=== PATIENT | female | born 1950 | race Caucasian/White ===

== ENCOUNTER → 2016-11-29 | Outpatient (CLI) | payer BC ==
--- NOTE | 2016-11-29 23:13 | WWHP ---
CHIEF COMPLAINT: Patient is here for her routine gynecologic exam and mammogram. HPI: This is a 66-year-old, G2, P2 with an LMP of 2002. She is status post JIGAR/BSO for benign reasons. The patient has been experiencing some occasional bladder leakage and this can happen with running or coughing and also she does have some urge incontinence at times. Urge incontinence can happen when she gets up from her bed to go to the bathroom in the morning. She sometimes does not make it to the bathroom in time. She is status post retropubic urethropexy, which was done at the time of her hysterectomy. She previously saw Dr. Sparks for her gynecologic care. It has been about 1-1/2 years since her last exam. She is otherwise without complaints. PAST MEDICAL HISTORY: Coronary artery disease since 1996 and she did have an MN in 2014. She is status post stent placement in 1996 and 2014. She also has a history of depression and does wear hearing aids for hearing loss. MEDICATIONS: 1. Lisinopril 2.5 mg daily. 2. Effient 10 mg daily. 3. Carvedilol 3.125 mg b.i.d. 4. Atorvastatin 20 mg daily. 5. Fluoxetine 40 mg daily. 6. Lorazepam 0.5 mg b.i.d. p.r.n. 7. Mirtazapine 15 mg 1/2 tablet daily. 8. Magnesium supplement 250 mg b.i.d. 9. Aspirin 81 mg daily. 10. Vitamin D3 supplement 2000 units daily. 11. Vitamin B complex daily. 12. Fluticasone nasal spray as directed. ALLERGIES TO CODEINE. PAST SURGICAL HISTORY: JIAGR/BSO with RPU 2002, cardiac stent placement in 1996 and 2014, colonoscopy 2016. This was her 3rd one. Jaw surgery in 2003. PAST OB HISTORY: 2 vaginal deliveries. 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 She is status post JIGAR/BSO for benign reasons. SOCIAL HISTORY: She denies tobacco, alcohol and drug use. She has been since 1970 and previously worked at [employer] and is now retired. She has 3 grandchildren. FAMILY HISTORY: Maternal aunt had breast cancer. Mother has coronary artery disease and dementia, father had Parkinson's disease. REVIEW OF SYSTEMS: She lost about 20 pounds after starting on a cardiac diet after 2015. RESPIRATORY: She can get slightly short of breath with strenuous exercise. She denies current cardiac problems or GI problems. PHYSICAL EXAM: Blood pressure 113/73. Height 5 feet 7 inches. Weight 127 pounds, temperature 97.7, pulse 71. This is a well-developed, well-nourished white female who is alert and oriented x3, in no acute distress. HEENT is within normal limits. NECK: Supple without mass or thyromegaly. CHEST AND LUNGS: Clear to auscultation. HEART: Regular rate and rhythm. Breasts are without mass or discharge. Axillary is negative for adenopathy. BACK: Negative for CVA tenderness. ABDOMEN: Soft, nontender, without palpable masses. PELVIC: External genitalia reveal mild to moderate atrophy without lesions. Vagina reveals mild atrophy without lesions. There is no evidence of prolapse. The vaginal cuff is well supported. There is no significant cystocele and there is only small amount of urethral mobility with cough and Valsalva. No urinary leakage was demonstrated. Rectovaginal is negative for mass or tenderness and is negative for occult blood. EXTREMITIES: Nontender. IMPRESSION: 1. A 66-year-old menopausal female, status post total abdominal hysterectomy/bilateral salpingo-oophorectomy for benign reasons. 2. Mild urinary incontinence, which is probably a mixed type of incontinence, without any significant physical findings at this time. PLAN: 1. Pap smears have been discontinued. 2. Self-breast examination was discussed. 3. Mammogram will be done today. 4. We have had a long discussion regarding her urinary leakage. I have recommended regular Kegel exercises and instructions on these were given to the patient. If her symptoms are problematic, consider a trial of medications for overactive bladder and possible referral to a [facility] urologist. 5. Osteoporosis prevention was discussed. I have recommended bone density testing, since it has been more than 10 years since her last one, and a slip was given to the patient for this. 6. She will return in 1 year.
--- NOTE | 2016-11-30 11:16 | MM ---
Reason for exam: screening (asymptomatic). Last mammogram was performed 1 year and 4 months ago. History: Patient is postmenopausal. Family history of breast cancer in maternal aunt. Physical Findings: A clinical breast exam by your physician is recommended on an annual basis and results should be correlated with mammographic findings. MG Screening Mammo w CAD Bilateral CC and MLO view(s) were taken. Prior study comparison: August 12, 2015, mammogram, performed at [facility]. July 09, 2014, mammogram, performed at [facility]. The breast tissue is heterogeneously dense. This may lower the sensitivity of mammography. No significant changes when compared with prior studies. ASSESSMENT: Benign, BI-RAD 2 RECOMMENDATION: Routine screening mammogram of both breasts in 1 year.
== END | disposition home or self-care (01) ==
LOC: WWCWWP 09:46
PROVIDERS: ATTEND Obstetrics & Gynecology
DX: Z12.31 Encounter for screening mammogram for malignant neoplasm of breast (principal)

== ENCOUNTER → 2017-03-08 | Outpatient (CLI) | payer MEDICARE ==
[2017-03-08 09:45] LABS: Basophils % (A) 1 %; CH 29.4; CHCM 32.8; Cholesterol 167 mg/dL (<200); Eosinophils # (A) 0.1 k/uL (0-0.7); Eosinophils % (A) 1 %; Glucose 94 mg/dL (74-99); HCT 46.1 % (34.0-46.0); HDL Cholesterol 61 mg/dL (40-60); HDW 2.23; HGB 15.2 gm/dL (11.4-16.0); Luc # (Auto) 0.08; Luc % (Auto) 2; Lymphocytes # (A) 1.3 k/uL (1.0-4.8); Lymphocytes % (A) 27 %; MCH 29.7 pg (25.0-35.0); MCHC 32.9 g/dL (31.0-37.0); MCV 90.2 fL (80.0-100.0); Mean Platelet Volume 7.7; Monocytes # (A) 0.2 k/uL (0-1.0); Monocytes % (A) 5 %; Neutrophils # (A) 3.1 k/uL (1.3-7.7); Neutrophils % (A) 65 %; RBC 5.11 m/uL (3.80-5.40); RDW 12.9 % (11.5-15.5); Triglycerides 74 mg/dL (<150); WBC 4.8 k/uL (3.8-10.6); WBC (Perox) 4.93
== END ==
LOC: LABWHC1 08:52
PROVIDERS: ATTEND Internal Medicine
DX: E78.5 Hyperlipidemia, unspecified (principal); I10 Essential (primary) hypertension; Z13.1 Encounter for screening for diabetes mellitus
CPT/HCPCS: 36415; 80061; 82947; 85025

== ENCOUNTER → 2017-05-02 | Outpatient (CLI) | payer MEDICARE ==
--- NOTE | 2017-05-02 15:42 | BD ---
EXAMINATION TYPE: MG DEXA axial skeleton. DATE OF EXAM: 05/02/2017 COMPARISON: NONE CLINICAL HISTORY: 67-year-old female postmenopausal screening Height: 66 IN Weight: 124 LBS FRAX RISK QUESTIONS: Alcohol (3 or more units per day): NO Family History (Parent hip fracture): NO Glucocorticoids (More than 3mos): NO (Ex: prednisone, prednisolone, methylprednisolone, dexamethasone, and hydrocortisone). History of Fracture in Adulthood: NO Secondary Osteoporosis: 1. Type 1 Diabetes: NO 2. Hyperthyroidism: NO 3. Menopause before 45: AGE 52 4. Malnutrition: NO 5. Chronic liver disease: NO Rheumatoid Arthritis: NO Current Tobacco Use: NO RISK FACTORS HISTORY OF: Active: YES Postmenopausal woman: AGE 52 Take estrogen and/or progesterone medications: NOT NOW How long: AGE 50 - 59 MEDICATIONS: Additional Medications: VIT D, MAGNESIUM, B COMPLEX, FLUTICASONE, FLUOXETINE, ASPIRIN, LISINOPRIL, EF FIENT, CARVEDILOL, ATORVASTATIN, NITROSTAT, LORAZEPAM, EXAM MEASUREMENTS: Bone mineral densitometry was performed using the 500px System. Bone mineral density as measured about the Lumbar spine is: ----- L1-L4(G/cm2): 1.412 T Score Values are as follows: ----- L2: 1.6 ----- L3: 3.8 ----- L4: 2.2 ----- L1-L4: 1.9 Bone mineral density BASELINE Bone mineral density about the R hip (g/cm2): 0.923 Bone mineral density about the L hip (g/cm2): 0.929 T Score values are as follows: -----R Neck: -0.8 -----L Neck: -0.8 -----R Total: -0.8 -----L Total: -1.0 Bone mineral density BASELINE IMPRESSION: Normal (Values between +1 and -1 indicate normal bone mass). However, measurements border on osteopen ia at the left hip. Consider repeating this study in 5 years or sooner if there is some new clinical indication. NOTE: T-SCORE=SD OF THE YOUNG ADULT MEAN.
== END | disposition home or self-care (01) ==
LOC: RADBDWWP 08:27
PROVIDERS: ATTEND Obstetrics & Gynecology
DX: Z78.0 Asymptomatic menopausal state (principal)
CPT/HCPCS: 77080

== ENCOUNTER → 2017-11-10 | Outpatient (CLI) | payer MEDICARE ==
[2017-11-10 09:10] LABS: Anion Gap 9 mmol/L; Blood Urea Nitrogen 19 mg/dL (7-17); Calcium 9.8 mg/dL (8.4-10.2); Carbon Dioxide 29 mmol/L (22-30); Chloride 103 mmol/L (98-107); Cholesterol 161 mg/dL (<200); Glucose 93 mg/dL (74-99); HDL Cholesterol 59 mg/dL (40-60); LDL Cholesterol,Calculated 88 mg/dL (0-99); Potassium 4.9 mmol/L (3.5-5.1); Sodium 141 mmol/L (137-145); Triglycerides 69 mg/dL (<150)
== END | disposition home or self-care (01) ==
LOC: LABWHC1 08:31
PROVIDERS: ATTEND Internal Medicine Interventional Cardiology
DX: E78.2 Mixed hyperlipidemia (principal)
CPT/HCPCS: 36415; 80048; 80061

== ENCOUNTER → 2018-01-08 | Outpatient (CLI) | payer MEDICARE ==
[2018-01-08 13:25] VITALS: PULSE 77; TEMP 96.4; BMI 20.7
--- NOTE | 2018-01-08 14:22 | P.HPOB ---
History of Present Illness H&P Date: 01/08/18 Chief Complaint: The patient is here for her routine gynecologic exam and mammogram. This is a 67-year-old with LMP of 2002. The patient is status post [facility] BSO for benign reasons. She is without gynecologic complaints at this time. Review of Systems The patient has gained 5 pounds over the last year. She denies respiratory, cardiac or G.I. problems. She denies maltreatment. She slipped on the ice wants this year. She had some bruises with no other injury. : she does have to get up at night to urinate. She also has times when she has to get to the bathroom right away during the day or she can leak. Past Medical History Past Medical History: Coronary Artery Disease (CAD), Hyperlipidemia ([place] in 2014. ), Hypertension, Myocardial Infarction ([place]) Additional Past Medical History / Comment(s): 1996 2 stents placed further down LAD; Retina Laser surgery 2 weeks ago, at [facility] outpatient; 2001 complete hysterectomy; anxiety. Hearing loss requiring hearing aid. Last Myocardial Infarction Date:: unk History of Any Multi-Drug Resistant Organisms: None Reported Past Surgical History: Heart Catheterization With Stent Additional Past Surgical History / Comment(s): 1996 2 stents placed farther down LAD Date of Last Stent Placement:: 1996 Past Psychological History: Anxiety, Depression Smoking Status: Never smoker Past Alcohol Use History: None Reported Past Drug Use History: None Reported - Past Family History Mother Family Medical History: Hypertension Additional Family Medical History / Comment(s): double bypass Father Family Medical History: COPD, Hearing Disorder / Deafness, Hypertension Additional Family Medical History / Comment(s): parkinsons; heart valve replacement Medications and Allergies Home Medications Medication Instructions Recorded Confirmed Type Aspirin 81 mg PO DAILY 09/12/15 01/08/18 History Cholecalciferol [Vitamin D3] 2,000 unit PO DAILY@1200 09/12/15 01/08/18 History Ezetimibe/Simvastatin [Vytorin 1 tab PO HS 09/12/15 01/08/18 History 10-40 mg Tablet] Fluticasone Propionate [Flonase 1 spray EA NOSTRIL HS 09/12/15 01/08/18 History Allergy Relief] LORazepam [Ativan] 0.5 mg PO TID PRN 09/12/15 01/08/18 History Loratadine [Claritin] 10 mg PO HS 09/12/15 01/08/18 History Magnesium Oxide [Mag-Ox] 250 mg PO BID 09/12/15 01/08/18 History Venlafaxine HCl [Effexor XR] 150 mg PO DAILY 09/12/15 01/08/18 History Vitamin B Complex 1 each PO DAILY 09/12/15 01/08/18 History Carvedilol [Coreg] 3.125 mg PO BID-W/MEALS #180 tab 09/16/15 01/08/18 Rx Lisinopril [Zestril] 2.5 mg PO DAILY #90 tab 09/16/15 01/08/18 Rx Nitroglycerin Sl Tabs [Nitrostat] 0.4 mg SUBLINGUAL Q5M PRN #25 tab 09/16/15 Rx Prasugrel [Effient] 10 mg PO DAILY #90 tab 09/16/15 01/08/18 Rx Ciprofloxacin HCl [Cipro] 500 mg PO Q12HR #10 tablet 09/19/15 01/08/18 Rx Cholecalciferol (Vitamin D3) 2,000 unit PO DAILY 01/08/18 01/08/18 History [Vitamin D3] Allergies Allergy/AdvReac Type Severity Reaction Status Date / Time codeine AdvReac Nausea & Verified 01/08/18 12:56 Vomiting Exam - Vital Signs Vital signs: Vital Signs Temp Pulse 01/08/18 12:54 96.4 F L 77 Intake and Output 01/07/18 01/08/18 01/08/18 22:59 06:59 14:59 Other: Weight 59.874 kg Height 5'7", BMI 21. This is a well-developed well-nourished white female who is alert and oriented times 3 in no acute distress. HEENT: Within normal limits. NECK: Supple without mass or thyromegaly. CHEST AND LUNGS: Clear to auscultation. HEART: Regular rate and rhythm. BREASTS: Are without mass or discharge. AXILLARY EXAM: Negative for adenopathy. BACK: Negative for CVA tenderness. ABDOMEN: Soft, nontender, without palpable masses. PELVIC EXAM: External genitalia appears normal with mild to moderate atrophic changes. Vagina appears normal with moderate atrophy. There is no evidence of prolapse. Bimanual examination is negative for mass or tenderness. RECTAL EXAM: Rectovaginal exam is negative for mass or tenderness and is negative for occult blood. EXTREMITIES: Nontender. IMPRESSION: 1. 67-year-old menopausal female status post JIGAR BSO for benign reasons with normal gynecologic exam. PLAN: 1. Pap smears have been discontinued. 2. Self breast examination was discussed. 3. Screening mammogram will be done today. 4. Osteoporosis prevention was discussed. 5. She did receive a flu shot this past fall. 6. She will return one year.
--- NOTE | 2018-01-09 12:24 | MM ---
Reason for exam: screening (asymptomatic). Last mammogram was performed 1 year and 1 month ago. History: Patient is postmenopausal. Family history of breast cancer in maternal aunt. Physical Findings: A clinical breast exam by your physician is recommended on an annual basis and results should be correlated with mammographic findings. MG 3D Screening Mammo W/Cad Bilateral CC and MLO view(s) were taken. Prior study comparison: November 29, 2016, bilateral MG screening mammo w CAD. August 12, 2015, mammogram, performed at [facility]. No suspicious abnormality. No significant changes when compared with prior studies. ASSESSMENT: Negative, BI-RAD 1 RECOMMENDATION: Routine screening mammogram of both breasts in 1 year.
== END | disposition home or self-care (01) ==
LOC: WWCWWP 12:46
PROVIDERS: ATTEND Obstetrics & Gynecology
DX: Z12.31 Encounter for screening mammogram for malignant neoplasm of breast (principal)
CPT/HCPCS: 77063; 77067

== ENCOUNTER → 2018-05-30 | Outpatient (CLI) | payer MEDICARE ==
[2018-05-30 11:01] LABS: Albumin 4.3 g/dL (3.5-5.0); Calcium 9.5 mg/dL (8.4-10.2); Total Bilirubin 0.5 mg/dL (0.2-1.3); Total Protein 6.7 g/dL (6.3-8.2)
== END | disposition home or self-care (01) ==
LOC: LABWHC1 09:48
PROVIDERS: ATTEND Internal Medicine Interventional Cardiology
DX: E78.2 Mixed hyperlipidemia (principal)
CPT/HCPCS: 36415; 80053; 80061

== ENCOUNTER → 2018-12-10 | Outpatient (CLI) | payer MEDICARE ==
[2018-12-10 17:28] LABS: Albumin 4.1 g/dL (3.80-4.90); Albumin/Globulin Ratio 2.16 (1.60-3.17); Anion Gap 8.8 mmol/L (4.00-12.00); Calcium 9.3 mg/dL (8.7-10.3); Carbon Dioxide 27.2 mmol/L (21.6-31.8); Globulin 1.9 g/dL (1.6-3.3); LDL Cholesterol,Calculated 107.6 mg/dL (0.0-131.0); Potassium 4.7 mmol/L (3.5-5.5); Total Bilirubin 0.4 mg/dL (0.2-1.2); VLDL Calculation 19.4 mg/dL (5.00-40.00)
== END | disposition home or self-care (01) ==
LOC: LABWHC1 07:46
PROVIDERS: ATTEND Internal Medicine Interventional Cardiology
DX: E78.2 Mixed hyperlipidemia (principal)
CPT/HCPCS: 36415; 80053; 80061

== ENCOUNTER → 2019-02-12 | Outpatient (CLI) | payer MEDICARE ==
[2019-02-12 08:09] VITALS: BP 106/61; PULSE 63; RESP 18; TEMP 97.5; BMI 21.4
--- NOTE | 2019-02-12 09:03 | P.HPOB ---
History of Present Illness H&P Date: 02/12/19 Chief Complaint: The patient is here for her routine gynecologic exam and ma mmogram. This is a 68-year-old with an LMP of 2002. The patient states she has had fairly frequent urinary tract infections over the past year. She had one in May, June, and August 2018. She also had one earlier this month. She has been treated through her urgent care clinic typically with Macrobid. She states her symptoms of pressure, urinary urgency and low back pain usually resolves with Macrobid. She has not been sexually active and is fearful that it will be very uncomfortable if she resumes sexual activity. She is otherwise without complaints. She is status post [facility] BSO for benign reasons. Review of Systems She is getting about 4 pounds over the past year.. She denies respiratory, cardiac and G.I. problems except for occasional constipation. She denies maltreatment or problems with falling. : she often will wear pad for small leakage. She typically urinates once at night.. Past Medical History Past Medical History: Coronary Artery Disease (CAD), Cancer, Hyperlipidemia, Hypertension, Myocardial Infarction ([place]) Additional Past Medical History / Comment(s): 1996 2 stents placed further down LAD; Retina Laser surgery. Hearing loss requiring hearing aid. Basal cell skin cancer. 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 Benign hysterectomy. Last Myocardial Infarction Date:: unk History of Any Multi-Drug Resistant Organisms: None Reported Past Surgical History: Heart Catheterization With Stent, Hysterectomy Additional Past Surgical History / Comment(s): 1996 2 stents placed farther down LAD. Jaw surgery. JIGAR BSO with RPU 2002. Colonoscopy 2016(,next 10yrs) Date of Last Stent Placement:: 1996 Past Psychological History: Anxiety, Depression Smoking Status: Never smoker Past Alcohol Use History: None Reported Past Drug Use History: None Reported Additional History: She is been since 1970 and is retired. - Past Family History Mother Family Medical History: Coronary Artery Disease (CAD), Dementia, Hypertension Additional Family Medical History / Comment(s): double bypass Father Family Medical History: COPD, Hearing Disorder / Deafness, Hypertension Additional Family Medical History / Comment(s): parkinsons; heart valve replacement Medications and Allergies Home Medications Medication Instructions Recorded Confirmed Type Aspirin 81 mg PO DAILY 09/12/15 02/12/19 History Ezetimibe/Simvastatin [Vytorin 40 tab PO HS 09/12/15 02/12/19 History 10-40 mg Tablet] Fluticasone Propionate [Flonase 1 spray EA NOSTRIL HS 09/12/15 02/12/19 History Allergy Relief] LORazepam [Ativan] 0.5 mg PO TID PRN 09/12/15 02/12/19 History Loratadine [Claritin] 10 mg PO HS 09/12/15 02/12/19 History Magnesium Oxide [Mag-Ox] 250 mg PO BID 09/12/15 02/12/19 History Vitamin B Complex 4,000 each PO DAILY 09/12/15 02/12/19 History Carvedilol [Coreg] 3.125 mg PO BID-W/MEALS #180 tab 09/16/15 02/12/19 Rx Lisinopril [Zestril] 2.5 mg PO DAILY #90 tab 09/16/15 02/12/19 Rx Nitroglycerin Sl Tabs [Nitrostat] 0.4 mg SUBLINGUAL Q5M PRN #25 tab 09/16/15 02/12/19 Rx Cholecalciferol (Vitamin D3) 2,000 unit PO DAILY 01/08/18 02/12/19 History [Vitamin D3] FLUoxetine HCL [PROzac] 40 mg PO DAILY 02/12/19 02/12/19 History Allergies Allergy/AdvReac Type Severity Reaction Status Date / Time codeine AdvReac Nausea & Verified 02/12/19 08:00 Vomiting Exam Vital Signs Temp Pulse Resp BP Pulse Ox 02/12/19 08:06 97.5 F L 63 18 106/61 99 Intake and Output 02/11/19 02/12/19 02/12/19 22:59 06:59 14:59 Other: Weight 62.142 kg Height 5'7", weight 137 pounds, BMI 21.5. This is a well-developed well-nourished white female who is alert and oriented times 3 in no acute distress. HEENT: Within normal limits. NECK: Supple without mass or thyromegaly. CHEST AND LUNGS: Clear to auscultation. HEART: Regular rate and rhythm. BREASTS: Are without mass or discharge. AXILLARY EXAM: Negative for adenopathy. BACK: Negative for CVA tenderness. ABDOMEN: Soft, nontender, without palpable masses. PELVIC EXAM: External genitalia appears normal with mild to moderate atrophy. Vagina appears normal with mild to moderate atrophy. There is no evidence of pr olapse. There is minimal urethral mobility with costs and Valsalva. No urinary leakage was demonstrated. Bimanual examination is negative for mass or tenderness. RECTAL EXAM: Rectovaginal exam is negative for mass or tenderness and is negative for occult blood. EXTREMITIES: Nontender. IMPRESSION: 1. 68-year-old menopausal female status post JIGAR BSO with normal gynecologic exam. 2. Recurrent urinary tract infections; 4 over the last 8 months. 3. Mild to moderate genital atrophy PLAN: 1. Pap smears have been discontinued. 2. Self breast awareness was discussed with the patient. 3. Remaining mammogram will be done today. 4. We have had a long discussion regarding her recurrent urinary tract infections. She was advised to try to empty your bladder as completely as possible when she does void. We talked about doing this by giving herself more time and by relaxing without bearing down. We will also have a trial of Premarin vaginal cream to see if this can help with the vaginal atrophy which in turn may help with her problems with recurrent UTIs. She will use Premarin vaginal cream 1 g intravaginally and a small amount to the urethral opening twice weekly. The electronic prescription will be sent to [facility] pharmacy on . 5. Osteoporosis prevention was discussed. I have stressed the importance of adequate calcium, vitamin D and regular exercise. Recommended amounts of calcium and vitamin D were also discussed. She had a normal bone density test on 05/02/2017. This will be repeated 5 years after her last testing. 6. She did receive flu shot last fall and plans to get one in the upcoming fall. 7.She was advised to return in one year for her annual well woman exam.
--- NOTE | 2019-02-13 11:46 | MM ---
Reason for exam: screening (asymptomatic). Last mammogram was performed 1 year and 1 month ago. History: Patient is postmenopausal and history of other cancer. Family history of breast cancer in maternal aunt. Physical Findings: A clinical breast exam by your physician is recommended on an annual basis and results should be correlated with mammographic findings. MG 3D Screening Mammo W/Cad Bilateral CC and MLO view(s) were taken. Prior study comparison: January 08, 2018, bilateral MG 3d screening mammo w/cad. November 29, 2016, bilateral MG screening mammo w CAD. The breast tissue is extremely dense which could obscure a lesion on mammography. Benign appearing bilateral calcifications. No suspicious abnormality. No significant changes when compared with prior studies. ASSESSMENT: Benign, BI-RAD 2 RECOMMENDATION: Routine screening mammogram of both breasts in 1 year.
== END ==
LOC: WWCWWP 07:45
PROVIDERS: ATTEND Obstetrics & Gynecology
DX: Z12.31 Encounter for screening mammogram for malignant neoplasm of breast (principal)
CPT/HCPCS: 77063; 77067

== ENCOUNTER → 2019-06-30 | Outpatient (CLI) | payer MEDICARE ==
[2019-06-30 16:09] LABS: Chol/HDL Ratio 2.59
== END | disposition home or self-care (01) ==
LOC: LABWHC1 09:20
PROVIDERS: ATTEND Internal Medicine Interventional Cardiology
DX: E78.2 Mixed hyperlipidemia (principal)
CPT/HCPCS: 36415; 80061; 84450; 84460

== ENCOUNTER → 2019-09-12 | Outpatient (CLI) | payer MEDICARE ==
[2019-09-12 16:26] LABS: Chol/HDL Ratio 2.73; LDL Cholesterol,Calculated 83.4 mg/dL (0.0-131.0); VLDL Calculation 11.6 mg/dL (5.00-40.00)
== END | disposition home or self-care (01) ==
LOC: LABWHC1 07:38
PROVIDERS: ATTEND Nurse Practitioner Adult Health
DX: E78.2 Mixed hyperlipidemia (principal)
CPT/HCPCS: 36415; 80061; 84450; 84460

== ENCOUNTER → 2019-11-21 | Outpatient (CLI) | payer MEDICARE ==
[2019-11-21 16:56] LABS: African American GFR (CKD) 67.5 (60.0-200.0); Albumin 4.6 g/dL (3.80-4.90); Albumin/Globulin Ratio 2.71 (1.60-3.17); Anion Gap 6.9 mmol/L (4.00-12.00); Calcium 9.7 mg/dL (8.7-10.3); Carbon Dioxide 27.1 mmol/L (21.6-31.8); Chol/HDL Ratio 2.65; Globulin 1.7 g/dL (1.6-3.3); LDL Cholesterol,Calculated 77.2 mg/dL (0.0-131.0); Non-African American GFR(CKD) 58.2 (60.0-200.0); Potassium 4.8 mmol/L (3.5-5.5); Total Bilirubin 0.6 mg/dL (0.2-1.2); Total Protein 6.3 g/dL (6.2-8.2); VLDL Calculation 13.8 mg/dL (5.00-40.00)
== END ==
LOC: LABWHC1 08:47
PROVIDERS: ATTEND Internal Medicine Interventional Cardiology
DX: E78.2 Mixed hyperlipidemia (principal)
CPT/HCPCS: 36415; 80053; 80061

== ENCOUNTER → 2020-01-05 | Outpatient (CLI) | payer MEDICARE | END | disposition home or self-care (01) | DX: I25.10 Atherosclerotic heart disease of native coronary artery without angina pectoris (principal) | CPT/HCPCS: 36415; 83735 ==

== ENCOUNTER → 2020-07-28 | Outpatient (CLI) | payer MEDICARE ==
[2020-07-28 10:05] LABS: Basophils % (A) 1 %; Eosinophils # (A) 0.1 k/uL (0-0.7); Eosinophils % (A) 1 %; HCT 44.7 % (34.0-46.0); HGB 14.5 gm/dL (11.4-16.0); Lymphocytes # (A) 1.2 k/uL (1.0-4.8); Lymphocytes % (A) 23 %; MCH 30.1 pg (25.0-35.0); MCHC 32.5 g/dL (31.0-37.0); MCV 92.6 fL (80.0-100.0); Mean Platelet Volume 8.4; Monocytes # (A) 0.3 k/uL (0-1.0); Monocytes % (A) 5 %; Neutrophils # (A) 3.7 k/uL (1.3-7.7); Neutrophils % (A) 69 %; Platelet Count 227 k/uL (150-450); RBC 4.82 m/uL (3.80-5.40); RDW 12.7 % (11.5-15.5); WBC 5.4 k/uL (3.8-10.6)
[2020-07-28 18:32] LABS: Albumin 4.3 g/dL (3.80-4.90); Albumin/Globulin Ratio 2.39 (1.60-3.17); Anion Gap 6.5 mmol/L (4.00-12.00); Calcium 9.2 mg/dL (8.7-10.3); Carbon Dioxide 26.5 mmol/L (21.6-31.8); Chol/HDL Ratio 2.47; Globulin 1.8 g/dL (1.6-3.3); Non-African American GFR(CKD) 57.8 (60.0-200.0); Potassium 4.8 mmol/L (3.5-5.5); Total Bilirubin 0.7 mg/dL (0.3-1.2); Total Protein 6.1 g/dL (6.2-8.2)
== END | disposition home or self-care (01) ==
LOC: LABWHC1 08:36
PROVIDERS: ATTEND Internal Medicine Interventional Cardiology
DX: E78.2 Mixed hyperlipidemia (principal)
CPT/HCPCS: 36415; 80053; 80061; 84443; 85025

== ENCOUNTER → 2020-08-03 | Outpatient (CLI) | payer MEDICARE ==
[2020-08-03 09:40] VITALS: BP 109/60; PULSE 57; RESP 18; TEMP 98.2
--- NOTE | 2020-08-03 10:19 | P.HPOB ---
History of Present Illness H&P Date: 08/03/20 Chief Complaint: the patient is here for her routine gynecologic exam. This is a 70-year-old with an LMP of 2002.the patient is here for her routine gynecologic exam. She is without gynecologic complaints. She is status post JIGAR/BSO for benign reasons. The patient was previously having frequent UTIs and was prescribed Premarin vaginal cream to see if this helped. She briefly used it for a short period of time but discontinued. She states she has not had urinary tract infections since last year. Review of Systems She has lost about 5 pounds over the past year. She denies respiratory, cardiac and G.I. problems. She denies maltreatment or problems with falling. : occasional small leak which requires her to wear a pad. This is not a very big problem. Past Medical History Past Medical History: Coronary Artery Disease (CAD), Cancer, Hyperlipidemia, Hypertension, Myocardial Infarction ([place]) Additional Past Medical History / Comment(s): 1996 2 stents placed further down LAD; Retina Laser surgery. Hearing loss requiring hearing aid. Basal cell skin cancer. 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 Benign hysterectomy. Last Myocardial Infarction Date:: unk History of Any Multi-Drug Resistant Organisms: None Reported Past Surgical History: Heart Catheterization With Stent, Hysterectomy Additional Past Surgical History / Comment(s): 1996 2 stents placed farther down LAD. Jaw surgery. JIGAR BSO with RPU 2002. Colonoscopy 2016(,next 10yrs) Date of Last Stent Placement:: 1996 Past Psychological History: Anxiety, Depression Smoking Status: Never smoker Past Alcohol Use History: None Reported Past Drug Use History: None Reported Additional History: She has been since 1970 and is retired. She is no longer sexually active. - Past Family History Mother Family Medical History: Coronary Artery Disease (CAD), Dementia, Hypertension Additional Family Medical History / Comment(s): double bypass Father Family Medical History: COPD, Hearing Disorder / Deafness, Hypertension Additional Family Medical History / Comment(s): parkinsons; heart valve replacement Medications and Allergies Home Medications Medication Instructions Recorded Confirmed Type Aspirin 81 mg PO DAILY 09/12/15 08/03/20 History Ezetimibe/Simvastatin [Vytorin 40 tab PO HS 09/12/15 08/03/20 History 10-40 mg Tablet] Fluticasone Propionate [Flonase 1 spray EA NOSTRIL HS 09/12/15 08/03/20 History Allergy Relief] LORazepam [Ativan] 0.5 mg PO TID PRN 09/12/15 08/03/20 History Loratadine [Claritin] 10 mg PO HS 09/12/15 08/03/20 History Magnesium Oxide [Mag-Ox] 250 mg PO BID 09/12/15 08/03/20 History Vitamin B Complex 4,000 each PO DAILY 09/12/15 08/03/20 History Nitroglycerin Sl Tabs [Nitrostat] 0.4 mg SUBLINGUAL Q5M PRN #25 tab 09/16/15 08/03/20 Rx carvediloL [Coreg] 3.125 mg PO BID-W/MEALS #180 tab 09/16/15 08/03/20 Rx lisinopriL [Zestril] 2.5 mg PO DAILY #90 tab 09/16/15 08/03/20 Rx Cholecalciferol (Vitamin D3) 2,000 unit PO DAILY 01/08/18 08/03/20 History [Vitamin D3] FLUoxetine HCL [PROzac] 80 mg PO DAILY 02/12/19 08/03/20 History Allergies Allergy/AdvReac Type Severity Reaction Status Date / Time codeine AdvReac Nausea & Verified 08/03/20 09:33 Vomiting Exam Vital Signs Temp Pulse Resp BP Pulse Ox 08/03/20 09:33 98.2 F 57 L 18 109/60 98 Intake and Output 08/02/20 08/03/20 08/03/20 22:59 06:59 14:59 Other: Weight 59.874 kg height 5 feet 7 inches, weight 132 pounds, BMI 20.7. This is a well-developed well-nourished White female who is alert and oriented times 3 in no acute distress. HEENT: Within normal limits. NECK: Supple without mass or thyromegaly. CHEST AND LUNGS: Clear to auscultation. HEART: Regular rate and rhythm. BREASTS: Are without mass or discharge. AXILLARY EXAM: Negative for adenopathy. BACK: Negative for CVA tenderness. ABDOMEN: Soft, nontender, without palpable masses. PELVIC EXAM: External genitalia appears normal with mild to moderate atrophy. Vagina appears normal with mild to moderate atrophy. There is no evidence of prolapse. Bimanual examination is negative for mass or tenderness. RECTAL EXAM: Rectovaginal exam is negative for mass or tenderness and is negative for occult blood. EXTREMITIES: Nontender. IMPRESSION: 1. 70-year-old menopausal female status post JIGAR/BSO for benign reasons with normal gynecologic exam. 2. Improvement of recurrent UTIs. PLAN: 1. Pap smears have been discontinued. 2. Self breast awareness was discussed with the patient. 3. screening mammogram will be done today. 4. osteoporosis prevention was discussed. We will plan on repeating bone density testing in 2021 since she had a normal one in 2017. 5. she did get a flu shot recently. 6. She will use a small amount of Premarin cream near the urethral opening twice weekly. She does have a tube for this. She will call if she needs refills. 7. The patient was advised to return in 1-2 years for her well woman examination.
--- NOTE | 2020-08-04 11:40 | MM ---
Reason for exam: screening (asymptomatic). Last mammogram was performed 1 year and 6 months ago. History: Patient is postmenopausal and history of other cancer. Family history of breast cancer in maternal aunt. Physical Findings: A clinical breast exam by your physician is recommended on an annual basis and results should be correlated with mammographic findings. MG 3D Screening Mammo W/Cad Bilateral CC and MLO view(s) were taken. Prior study comparison: February 12, 2019, bilateral MG 3d screening mammo w/cad. January 08, 2018, bilateral MG 3d screening mammo w/cad. The breast tissue is extremely dense which could obscure a lesion on mammography. Stable benign calcifications. There is no discrete abnormality. No significant changes when compared with prior studies. ASSESSMENT: Benign, BI-RAD 2 RECOMMENDATION: Routine screening mammogram of both breasts in 1 year.
== END | disposition home or self-care (01) ==
LOC: WWCWWP 09:17
PROVIDERS: ATTEND Obstetrics & Gynecology
DX: Z12.31 Encounter for screening mammogram for malignant neoplasm of breast (principal)
CPT/HCPCS: 77063; 77067

== ENCOUNTER → 2021-01-12 | Outpatient (CLI) | payer MEDICARE ==
[2021-01-12 17:09] LABS: Albumin 4.6 g/dL (3.80-4.90); Albumin/Globulin Ratio 2.42 (1.60-3.17); Calcium 9.2 mg/dL (8.7-10.3); Chol/HDL Ratio 2.84; Globulin 1.9 g/dL (1.6-3.3); LDL Cholesterol,Calculated 81.2 mg/dL (0.0-131.0); Non-African American GFR(CKD) 57.8 (60.0-200.0); Potassium 4.5 mmol/L (3.5-5.5); Total Bilirubin 0.7 mg/dL (0.3-1.2); Total Protein 6.5 g/dL (6.2-8.2); VLDL Calculation 21.8 mg/dL (5.00-40.00)
== END | disposition home or self-care (01) ==
LOC: LABWHC1 08:35
PROVIDERS: ATTEND Nurse Practitioner Adult Health
DX: I25.5 Ischemic cardiomyopathy (principal); E78.2 Mixed hyperlipidemia
CPT/HCPCS: 36415; 80053; 80061

== ENCOUNTER → 2021-04-13 | Outpatient (CLI) | payer MEDICARE ==
[2021-04-13 14:19] LABS: Basophils # (A) 0.03 X 10*3/uL (0.00-0.10); Basophils % (A) 0.6 %; Eosinophils # (A) 0.09 X 10*3/uL (0.04-0.35); Eosinophils % (A) 1.7 %; HCT 44.1 % (37.2-46.3); HGB 14.4 g/dL (12.0-15.0); Lymphocytes # (A) 1.25 X 10*3/uL (0.90-5.00); Lymphocytes % (A) 23.4 %; MCH 29.7 pg (27.0-32.0); MCHC 32.7 g/dL (32.0-37.0); MCV 90.9 fL (80.0-97.0); Mean Platelet Volume 11.7 fL (9.5-12.2); Monocytes # (A) 0.46 X 10*3/uL (0.20-1.00); Monocytes % (A) 8.6 %; Neutrophils % (A) 65.5 %; Platelet Count 269 X 10*3/uL (140-440); RBC 4.85 X 10*6/uL (4.10-5.20); RDW 13.9 % (11.5-14.5); WBC 5.34 X 10*3/uL (4.50-10.00)
== END | disposition home or self-care (01) ==
LOC: LABWHC1 10:50
PROVIDERS: ATTEND Internal Medicine
DX: N18.31 Chronic kidney disease, stage 3a (principal)
CPT/HCPCS: 36415; 84100; 85025

== ENCOUNTER → 2021-07-28 | Outpatient (CLI) | payer MEDICARE ==
[2021-07-28 13:33] LABS: African American GFR (CKD) 72.4 (60.0-200.0); Albumin 4.4 g/dL (3.8-4.9); Albumin/Globulin Ratio 2.23 (1.60-3.17); Anion Gap 10.8 mmol/L (4.00-12.00); BUN/Creat Ratio 17.9 Ratio (12.00-20.00); Blood Urea Nitrogen 16.7 mg/dL (9.0-27.0); Calcium 9.5 mg/dL (8.7-10.3); Carbon Dioxide 25.9 mmol/L (21.6-31.8); Chol/HDL Ratio 2.67 Ratio; HDL Cholesterol 58.7 mg/dL (40.00-60.00); LDL Cholesterol,Calculated 79.2 mg/dL (0.0-131.0); Non-African American GFR(CKD) 62.5 (60.0-200.0); Potassium 4.9 mmol/L (3.5-5.5); Total Bilirubin 0.4 mg/dL (0.30-1.20); Total Protein 6.3 g/dL (6.2-8.2); Triglycerides 95.5 mg/dL (0.00-149.00); VLDL Calculation 19.1 mg/dL (5.00-40.00)
== END | disposition home or self-care (01) ==
LOC: LABWHC1 07:51
PROVIDERS: ATTEND Internal Medicine Interventional Cardiology
DX: E78.2 Mixed hyperlipidemia (principal)
CPT/HCPCS: 36415; 80053; 80061

== ENCOUNTER → 2021-08-16 | Outpatient (CLI) | payer MEDICARE ==
--- NOTE | 2021-08-17 10:43 | MM ---
Reason for exam: screening (asymptomatic). Last mammogram was performed 1 year ago. History: Patient is postmenopausal and history of other cancer. Family history of breast cancer in maternal aunt. Physical Findings: A clinical breast exam by your physician is recommended on an annual basis and results should be correlated with mammographic findings. MG 3D Screening Mammo W/Cad Bilateral CC and MLO view(s) were taken. Prior study comparison: August 03, 2020, bilateral MG 3d screening mammo w/cad. February 12, 2019, bilateral MG 3d screening mammo w/cad. The breast tissue is extremely dense which could obscure a lesion on mammography. Stable benign calcifications. There is no discrete abnormality. No significant changes when compared with prior studies. ASSESSMENT: Benign, BI-RAD 2 RECOMMENDATION: Routine screening mammogram of both breasts in 1 year.
== END | disposition home or self-care (01) ==
LOC: RADMAMWWP 08:35
PROVIDERS: ATTEND Internal Medicine
DX: Z12.31 Encounter for screening mammogram for malignant neoplasm of breast (principal)
CPT/HCPCS: 77063; 77067

== ENCOUNTER → 2022-10-11 | Outpatient (CLI) | payer MEDICARE ==
--- NOTE | 2022-10-11 15:42 | BD ---
EXAMINATION TYPE: Axial Bone Density DATE OF EXAM: 10/11/2022 COMPARISON: NONE CLINICAL HISTORY: 72 years year old Female. ICD-10 CODE: Z78.0 ASYMPTOMATIC MENOPAUSAL Height: 5 FT 5 IN Weight: 137 FRAX RISK QUESTIONS: Alcohol (3 or more units per day): NO Family History (Parent hip fracture): NO Glucocorticoids (More than 3mos): NO (Ex: prednisone, prednisolone, methylprednisolone, dexamethasone, and hydrocortisone). History of Fracture in Adulthood: NO Secondary Osteoporosis: 1. Type 1 Diabetes: NO 2. Hyperthyroidism: NO 3. Menopause before 45: UNKNOWN 4. Malnutrition: NO 5. Chronic liver disease: NO Rheumatoid Arthritis: NO Current Tobacco Use: NO RISK FACTORS HISTORY OF: Family History of Osteoporosis: NO Active: YES Diet low in dairy products/other sources of calcium: NO Postmenopausal woman: YES Take estrogen and/or progesterone medications: NO Lost more than 2 inches in height since high school: NO Frequent falls: NO Poor Health: GOOD Hyperparathyroidism: NO Adrenal Insufficiency: NO MEDICATIONS: Prednisone or other steroids: How Long: Thyroid Medications: Which medication: How Long: Osteoporosis Medications: Which medication: How Long: Additional Medications: MAGNESIUM, VIT D3, BABY ASPIRIN, AMLODIPINE, LORAZEPAM, PROZAC, CARVEDILOL, N ITROSTAT NEEDED, TRAZODONE, ATORVASTATIN, EZETIMIBE Additional History: EXAM MEASUREMENTS: Bone mineral densitometry was performed using the [employer] System. Bone mineral density as measured about the Lumbar spine is: ----- L1-L4(G/cm2): 1.307 T Score Values are as follows: ----- L1: -1.0 ----- L2: 0.3 ----- L3: 1.5 ----- L4: 3.1 ----- L1-L4: 1.1 Bone mineral density has: DECREASED -7.3 % since study of: 2016 Bone mineral density about the R hip (g/cm2): 0.873 Bone mineral density about the L hip (g/cm2): 0.834 T Score values are as follows: -----R Neck: -1.2 -----L Neck: -1.5 -----R Total: -1.2 -----L Total: -1.5 Bone mineral density has: DECREASED -6.6 % since study of: 2017 FRAX%s: The graph provided illustrates a 9.5 % chance for a major osteoporotic fx and a 1.4 % chance for the hips probability for fx in 10 years time. IMPRESSION: Osteopenia (T Score between -2.5 and -1). There is slightly increased risk of fracture and the patient may be considered for treatment. Re-Screen 2-5 years. NOTE: T-SCORE=SD OF THE YOUNG ADULT MEAN.
--- NOTE | 2022-10-11 18:52 | MM ---
Reason for Exam: Screening (asymptomatic). Last mammogram was performed 1 year(s) and 2 month(s) ago. Patient History: Menarche at age 15. First Full-Term at age 23. Left ovary removed at age 51. Right ovary removed at age 51. Hysterectomy at age 51. Postmenopausal. Other cancer. Maternal aunt had breast cancer. Risk Values: Kaylie 5 year model risk: 1.5%. NCI Lifetime model risk: 4.5%. Prior Study Comparison: 02/12/2019 Bilateral Screening Mammogram, [facility]. 08/03/2020 Bilateral Screening Mammogram, [facility]. 08/16/2021 Bilateral Screening Mammogram, [facility]. Tissue Density: The breast tissue is heterogeneously dense. This may lower the sensitivity of mammography. Findings: Analyzed By CAD. Heart appears symmetrical and stable. This benign calcifications present bilaterally. No suspicious groups of microcalcifications, spiculated or lobular masses, architectural distortion or other secondary signs of malignancy are mammographically apparent. Overall Assessment: Benign, BI-RAD 2 Management: Screening Mammogram of both breasts in 1 year. A negative mammogram report should not preclude additional follow up of suspicious palpable abnormalities. Patient should continue monthly self breast exam. A clinical breast exam by your physician is recommended on an annual basis and results should be correlated with mammographic findings. Electronically signed and approved by: Maurilio Gonzales D.O. Radiologis
== END | disposition home or self-care (01) ==
LOC: RADMAMWWP 11:14
PROVIDERS: ATTEND Internal Medicine
DX: Z12.31 Encounter for screening mammogram for malignant neoplasm of breast (principal); Z78.0 Asymptomatic menopausal state; M85.89 Other specified disorders of bone density and structure, multiple sites
CPT/HCPCS: 77063; 77067; 77080

== ENCOUNTER → 2023-08-01 | Outpatient (CLI) | payer MEDICARE ==
[2023-08-01 16:26] LABS: ALT 18 U/L (8-44); AST 21 U/L (13-35); Albumin 4.6 d/dL (3.8-4.9); Albumin/Globulin Ratio 2.19 Ratio (1.60-3.17); Alkaline Phosphatase 59 U/L (41-126); Blood Urea Nitrogen 16.3 mg/dL (9.0-27.0); Calcium 9.7 mg/dL (8.7-10.3); Carbon Dioxide 26.8 mmol/L (21.6-31.8); Chloride 104 mmol/L (96-109); Globulin 2.1 d/dL (1.6-3.3); Glucose 102 mg/dL (70-110); LDL Cholesterol,Calculated 86.9 mg/dL (0.0-131.0); Potassium 5.1 mmol/L (3.5-5.5); Sodium 142 mmol/L (135-145); Total Bilirubin 0.6 mg/dL (0.3-1.2); Total Protein 6.7 d/dL (6.2-8.2); VLDL Calculation 17.62 mg/dL (5.00-40.00)
== END | disposition home or self-care (01) ==
LOC: LABWHC1 09:40
PROVIDERS: ATTEND Internal Medicine Interventional Cardiology
DX: I10 Essential (primary) hypertension (principal); E78.2 Mixed hyperlipidemia
CPT/HCPCS: 36415; 80053; 80061

== ENCOUNTER 2024-02-16 21:00 | Emergency (ER) | payer MEDICARE ==
--- NOTE | 2024-02-16 23:00 | XR ---
EXAM: XR Chest, 2 Views CLINICAL HISTORY: ITS.REASON XR Reason: Chest Pain TECHNIQUE: Frontal and lateral views of the chest. COMPARISON: No previous studies. FINDINGS: Lungs: Unremarkable. No consolidative changes. Pleural space: Unremarkable. No pneumothorax. No pleural effusions. Heart: Unremarkable. No cardiomegaly. Mediastinum: Cardiomediastinal silhouette unremarkable. Bones/joints: Osteopenia. No acute fracture. Soft tissues: Soft tissues are unremarkable. IMPRESSION: No active disease.
--- NOTE | 2024-02-16 23:40 | US ---
EXAM: US Duplex Left Upper Extremity Veins CLINICAL HISTORY: ITS.REASON US Reason: swelling, pain TECHNIQUE: Real-time duplex ultrasound scan of the left upper extremity veins integrating B-mode two-dimensional vascular structure, Doppler spectral analysis, color flow Doppler imaging and compression. COMPARISON: No previous studies. FINDINGS: Deep veins: Unremarkable. No deep venous thrombosis left upper extremity deep venous system. Superficial veins: Unremarkable. No thrombus in the visualized basilic and cephalic veins. Soft tissues: The soft tissues are unremarkable. IMPRESSION: No deep venous thrombosis.
[2024-02-16 23:52] LABS: ALT 18 U/L (4-34); AST 28 U/L (14-36); African American GFR (CKD) 79 (>60 ml/min/1.73 sqM); Albumin 4.2 g/dL (3.5-5.0); Alkaline Phosphatase 62 U/L (38-126); Anion Gap 7 mmol/L; Blood Urea Nitrogen 20 mg/dL (7-17); Calcium 8.8 mg/dL (8.4-10.2); Carbon Dioxide 22 mmol/L (22-30); Chloride 108 mmol/L (98-107); Glucose 90 mg/dL (74-99); Magnesium 2.3 mg/dL (1.6-2.3); Non-African American GFR(CKD) 69 (>60 ml/min/1.73 sqM); Potassium 4.6 mmol/L (3.5-5.1); Sodium 137 mmol/L (137-145); Total Bilirubin 0.5 mg/dL (0.2-1.3); Total Protein 6.8 g/dL (6.3-8.2)
[2024-02-16 23:53] LABS: Basophils % (A) 1 %; Eosinophils # (A) 0.1 k/uL (0-0.7); Eosinophils % (A) 1 %; HCT 43.5 % (34.0-46.0); HGB 14.3 gm/dL (11.4-16.0); Lymphocytes # (A) 1.6 k/uL (1.0-4.8); Lymphocytes % (A) 24 %; MCH 29.5 pg (25.0-35.0); MCHC 32.9 g/dL (31.0-37.0); MCV 89.7 fL (80.0-100.0); Mean Platelet Volume 9.4; Monocytes # (A) 0.5 k/uL (0-1.0); Monocytes % (A) 7 %; Neutrophils # (A) 4.2 k/uL (1.3-7.7); Neutrophils % (A) 65 %; Platelet Count 189 k/uL (150-450); RBC 4.86 m/uL (3.80-5.40); RDW 13.5 % (11.5-15.5); WBC 6.4 k/uL (3.8-10.6)
[2024-02-16 23:54] LABS: INR 0.9 (<1.2)
[2024-02-16 23:55] LABS: Partial Thromboplastin Time 22.8 sec (22.0-30.0); Prothrombin Time 10.1 sec (10.0-12.5)
[2024-02-17] MEDS: ACETAMINOPHEN TAB 325 MG TAB PO STA (00:06)
[2024-02-17 01:13] VITALS: RESP 16
--- NOTE | 2024-02-17 02:04 | ED ---
Extremity Problem HPI - General Chief complaint: Extremity Problem,Nontraumatic Stated complaint: left hand swelling shoulder pain Time Seen by Provider: 02/16/24 22:02 Source: patient Mode of arrival: ambulatory Limitations: no limitations - History of Present Illness Initial comments: 73-year-old female presenting with chief complaint of left upper extremity discomfort. Patient was having some mild swelling and pain to the dorsal surface of her hand today. There has been no injury or trauma. The swelling has come down, she states that the pain is only present when pushing on the dorsal surface of her hand. She also admits to pain in the shoulder blade area on the left side. Seems to be worse when she laughs or coughs. No lower extremity swelling. No chest pain or difficulty breathing. No abdominal pain, nausea, vomiting. No dizziness, headache, vision or hearing changes, numbness, tingling, weakness. No neck pain. - Related Data Home Medications Medication Instructions Recorded Confirmed Aspirin 81 mg PO DAILY 09/12/15 08/03/20 Ezetimibe/Simvastatin [Vytorin 40 tab PO HS 09/12/15 08/03/20 10-40 mg Tablet] Fluticasone Propionate [Flonase 1 spray EA NOSTRIL HS 09/12/15 08/03/20 Allergy Relief] LORazepam [Ativan] 0.5 mg PO TID PRN 09/12/15 08/03/20 Loratadine [Claritin] 10 mg PO HS 09/12/15 08/03/20 Magnesium Oxide [Mag-Ox] 250 mg PO BID 09/12/15 08/03/20 Vitamin B Complex 4,000 each PO DAILY 09/12/15 08/03/20 Cholecalciferol (Vitamin D3) 2,000 unit PO DAILY 01/08/18 08/03/20 [Vitamin D3] FLUoxetine HCL [PROzac] 80 mg PO DAILY 02/12/19 08/03/20 Previous Rx's Medication Instructions Recorded Nitroglycerin Sl Tabs [Nitrostat] 0.4 mg SUBLINGUAL Q5M PRN #25 tab 09/16/15 carvediloL [Coreg] 3.125 mg PO BID-W/MEALS #180 tab 09/16/15 lisinopriL [Zestril] 2.5 mg PO DAILY #90 tab 09/16/15 Allergies Allergy/AdvReac Type Severity Reaction Status Date / Time codeine AdvReac Nausea & Verified 02/16/24 21:07 Vomiting Review of Systems ROS Statement: Those systems with pertinent positive or pertinent negative responses have been documented in the HPI. ROS Other: All systems not noted in ROS Statement are negative. Past Medical History Past Medical History: Coronary Artery Disease (CAD), Cancer, Hyperlipidemia, Hypertension, Myocardial Infarction (OR) Additional Past Medical History / Comment(s): 1996 2 stents placed further down LAD; Retina Laser surgery. Hearing loss requiring hearing aid. Basal cell skin cancer. 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 Benign hysterectomy. Last Myocardial Infarction Date:: unk History of Any Multi-Drug Resistant Organisms: None Reported Past Surgical History: Heart Catheterization With Stent, Hysterectomy Additional Past Surgical History / Comment(s): 1996 2 stents placed farther down LAD. Jaw surgery. JIGAR BSO with RPU 2002. Colonoscopy 2016(3rd,next 10yrs) Date of Last Stent Placement:: 1996 Past Psychological History: Anxiety, Depression Smoking Status: Never smoker Past Alcohol Use History: None Reported Past Drug Use History: None Reported - Past Family History Mother Family Medical History: Coronary Artery Disease (CAD), Dementia, Hypertension Additional Family Medical History / Comment(s): double bypass Father Family Medical History: COPD, Hearing Disorder / Deafness, Hypertension Additional Family Medical History / Comment(s): parkinsons; heart valve replacement General Exam Limitations: no limitations General appearance: alert, in no apparent distress Head exam: Present: atraumatic, normocephalic Eye exam: Present: normal appearance, EOMI Neck exam: Present: normal inspection. Absent: meningismus Respiratory exam: Present: normal lung sounds bilaterally. Absent: respiratory distress, wheezes, rales, rhonchi, stridor Cardiovascular Exam: Present: regular rate, normal rhythm, normal heart sounds. Absent: systolic murmur, diastolic murmur, rubs, gallop, clicks Left Shoulder Exam: Present: normal inspection, full ROM. Absent: tenderness, deformity Hand Wrist exam: Present: normal inspection, full ROM, tenderness (Mild tenderness to the dorsal surface of the hand) Vascular: Absent: vascular compromise Neurological exam: Present: alert, oriented X3 Psychiatric exam: Present: normal affect, normal mood Skin exam: Present: warm, dry Course Vital Signs 04/02/17/24 02/17/24 21:02 00:15 02:19 Temperature 97.8 F 98.0 F Pulse Rate 72 61 70 Respiratory 18 16 16 Rate Blood Pressure 137/67 97/65 94/72 O2 Sat by Pulse 98 99 98 Oximetry Medical Decision Making - Medical Decision Making Was pt. sent in by a medical professional or institution (, [facility], CHEMISTRY TEACHER, urgent care, hospital, or shelter...) When possible be specific @ -No Did you speak to anyone other than the patient for history (EMS, parent, family, police, friend...)? What history was obtained from this source @ -No Did you review nursing and triage notes (agree or disagree)? Why? @ -I reviewed and agree with nursing and triage notes Were old charts reviewed (outside hosp., previous admission, EMS record, old EKG, old radiological studies, urgent care reports/EKG's, shelter records)? Report findings @ -No old charts were reviewed Differential Diagnosis (chest pain, altered mental status, abdominal pain women, abdominal pain men, vaginal bleeding, weakness, fever, dyspnea, syncope, headache, dizziness, GI bleed, back pain, seizure, CVA, palpatations, mental health, musculoskeletal)? @ -Differential Musculoskeletal Muscular strain, contusion, ligament sprain, fracture, arthritis, septic arthritis, bursitis, cellulitis, muscle spasm, nerve compression, DVT, arterial occlusion, herpes zoster, electrolyte abnormality, tumor.... This is not meant to be in all inclusive list EKG interpreted by me (3pts min.). @ -EKG shows sinus rhythm ventricular rate 64. LA interval 122. QRS 85. QT 427. QTc 436. X-rays interpreted by me (1pt min.). @ -X-ray shows no active disease. CT interpreted by me (1pt min.). @ -None done U/S interpreted by me (1pt. min.). @ -Ultrasound shows no DVT What testing was considered but not performed or refused? (CT, X-rays, U/S, labs)? Why? @ -None What meds were considered but not given or refused? Why? @ -None Did you discuss the management of the patient with other professionals (pro fessionals i.e. , [facility] CARLOS, CHEMISTRY TEACHER, lab, RT, psych nurse, social media community manager, carbon printer, teacher, fire information officer, manager rn case)? Give summary @ -No Was smoking cessation discussed for >3mins.? @ -No Was critical care preformed (if so, how long)? @ -No Were there social determinants of health that impacted care today? How? (Homelessness, low income, unemployed, alcoholism, drug addiction, transportation, low edu. Level, literacy, decrease access to med. care, penitentiary, rehab)? @ -No Was there de-escalation of care discussed even if they declined (Discuss DNR or withdrawal of care, Hospice)? DNR status @ -No What co-morbidities impacted this encounter? (DM, HTN, Smoking, COPD, CAD, Cancer, CVA, ARF, Chemo, Hep., AIDS, mental health diagnosis, sleep apnea, morbid obesity)? @ -None Was patient admitted / discharged? Hospital course, mention meds given and route, prescriptions, significant lab abnormalities, going to OR and other pertinent info. @ -73-year-old female present with chief complaint of left upper extremity discomfort. Symptoms started today. No injury or trauma. History and physical exam are conducted. The patient is neurovascularly intact. No chest pain, difficulty breathing, lower extremity swelling. Lab work shows no leukocytosis or anemia. Negative troponin and D-dimer. Chest x-ray shows no active disease and ultrasound is negative for DVT. EKG shows sinus rhythm with no ST deviation. On reevaluation the patient is resting comfortably showing no acute signs of distress. She is eager for discharge home. She will follow-up with her PCP this week. Follow-up with PCP. Report back to ER with any new or worsening symptoms. Discussed return parameters and answered all questions. Patient conveyed verbal understanding and agreed to the plan. I discussed this case in detail with my attending Dr. Kathleen Undiagnosed new problem with uncertain prognosis? @ -No Drug Therapy requiring intensive monitoring for toxicity (Heparin, Nitro, Insulin, Cardizem)? @ -No Were any procedures done? @ -No Diagnosis/symptom? @ -lefft Upper extremity pain Acute, or Chronic, or Acute on Chronic? @ -Acute Uncomplicated (without systemic symptoms) or Complicated (systemic symptoms)? @ -Uncomplicated Side effects of treatment? @ -No Exacerbation, Progression, or Severe Exacerbation? @ -No Poses a threat to life or bodily function? How? (Chest pain, USA, OR, pneumonia, PE, COPD, DKA, ARF, appy, cholecystitis, CVA, Diverticulitis, Homicidal, Suicidal, threat to staff... and all critical care pts) @ -Low likelihood - Lab Data Result diagrams: 02/16/24 23:07 02/16/24 23:07 Lab Results 02/16/24 02/16/24 02/16/24 Range/Units 23:07 23:07 23:07 WBC 6.4 (3.8-10.6) k/uL RBC 4.86 (3.80-5.40) m/uL Hgb 14.3 (11.4-16.0) gm/dL Hct 43.5 (34.0-46.0) % MCV 89.7 (80.0-100.0) fL MCH 29.5 (25.0-35.0) pg MCHC 32.9 (31.0-37.0) g/dL RDW 13.5 (11.5-15.5) % Plt Count 189 (150-450) k/uL MPV 9.4 Neutrophils % 65 % Lymphocytes % 24 % Monocytes % 7 % Eosinophils % 1 % Basophils % 1 % Neutrophils # 4.2 (1.3-7.7) k/uL Lymphocytes # 1.6 (1.0-4.8) k/uL Monocytes # 0.5 (0-1.0) k/uL Eosinophils # 0.1 (0-0.7) k/uL Basophils # 0.0 (0-0.2) k/uL PT 10.1 (10.0-12.5) sec INR 0.9 (<1.2) APTT 22.8 (22.0-30.0) sec D-Dimer (<0.60) mg/L FEU Sodium 137 (137-145) mmol/L Potassium 4.6 (3.5-5.1) mmol/L Chloride 108 H (98-107) mmol/L Carbon Dioxide 22 (22-30) mmol/L Anion Gap 7 mmol/L BUN 20 H (7-17) mg/dL Creatinine 0.86 (0.52-1.04) mg/dL Est GFR (CKD-EPI)AfAm 79 (>60 ml/min/1.73 sqM) Est GFR (CKD-EPI)NonAf 69 (>60 ml/min/1.73 sqM) Glucose 90 (74-99) mg/dL Calcium 8.8 (8.4-10.2) mg/dL Magnesium 2.3 (1.6-2.3) mg/dL Total Bilirubin 0.5 (0.2-1.3) mg/dL AST 28 (14-36) U/L ALT 18 (4-34) U/L Alkaline Phosphatase 62 (38-126) U/L Troponin I (0.000-0.034) ng/mL Total Protein 6.8 (6.3-8.2) g/dL Albumin 4.2 (3.5-5.0) g/dL 02/16/24 02/16/24 Range/Units 23:07 23:07 WBC (3.8-10.6) k/uL RBC (3.80-5.40) m/uL Hgb (11.4-16.0) gm/dL Hct (34.0-46.0) % MCV (80.0-100.0) fL MCH (25.0-35.0) pg MCHC (31.0-37.0) g/dL RDW (11.5-15.5) % Plt Count (150-450) k/uL MPV Neutrophils % % Lymphocytes % % Monocytes % % Eosinophils % % Basophils % % Neutrophils # (1.3-7.7) k/uL Lymphocytes # (1.0-4.8) k/uL Monocytes # (0-1.0) k/uL Eosinophils # (0-0.7) k/uL Basophils # (0-0.2) k/uL PT (10.0-12.5) sec INR (<1.2) APTT (22.0-30.0) sec D-Dimer 0.58 (<0.60) mg/L FEU Sodium (137-145) mmol/L Potassium (3.5-5.1) mmol/L Chloride (98-107) mmol/L Carbon Dioxide (22-30) mmol/L Anion Gap mmol/L BUN (7-17) mg/dL Creatinine (0.52-1.04) mg/dL Est GFR (CKD-EPI)AfAm (>60 ml/min/1.73 sqM) Est GFR (CKD-EPI)NonAf (>60 ml/min/1.73 sqM) Glucose (74-99) mg/dL Calcium (8.4-10.2) mg/dL Magnesium (1.6-2.3) mg/dL Total Bilirubin (0.2-1.3) mg/dL AST (14-36) U/L ALT (4-34) U/L Alkaline Phosphatase (38-126) U/L Troponin I <0.012 (0.000-0.034) ng/mL Total Protein (6.3-8.2) g/dL Albumin (3.5-5.0) g/dL Disposition Clinical Impression: Left upper limb pain Disposition: HOME SELF-CARE Condition: Good Instructions (If sedation given, give patient instructions): Shoulder Pain (ED) Additional Instructions: Follow-up with your PCP. Report back to ER with any new or worsening symptoms. Is patient prescribed a controlled substance at d/c from ED?: No Referrals: Iwona Kaur MD [Primary Care Provider] - 1-2 days Time of Disposition: 02:04
[2024-02-17 02:43] VITALS: BP 94/72; PULSE 70; TEMP 98
== END 2024-02-17 02:22 | disposition home or self-care (01) ==
LOC: EC 21:00
DX: M79.602 Pain in left arm (principal); Z88.5 Allergy status to narcotic agent
CPT/HCPCS: 36415; 71046; 80053; 83735; 84484; 85025; 85379; 85610; 85730; 93005; 99284

== ENCOUNTER → 2024-09-30 | Outpatient (CLI) | payer MEDICARE ==
--- NOTE | 2024-10-06 11:33 | MM ---
Reason for Exam: Screening (asymptomatic). Last mammogram was performed 2 year(s) and 0 month(s) ago. Patient History: Menarche at age 15. First Full-Term at age 23. Left ovary removed at age 51. Right ovary removed at age 51. Hysterectomy at age 51. Postmenopausal. Other cancer. Maternal aunt had breast cancer. Risk Values: Kaylie 5 year model risk: 1.6%. NCI Lifetime model risk: 4.1%. Prior Study Comparison: 08/03/2020 Bilateral Screening Mammogram, [facility]. 08/16/2021 Bilateral Screening Mammogram, [facility]. 10/11/2022 Bilateral MG 3D screening mammo w/cad, [facility]. Tissue Density: The breasts are heterogeneously dense, which may obscure small masses. Findings: Analyzed By CAD. Right breast: There is no suspicious group of microcalcifications or new suspicious mass. Left breast: There is no suspicious group of microcalcifications or new suspicious mass. Benign-appearing calcifications left breast. Overall Assessment: Benign, BI-RAD 2 Management: Screening Mammogram of both breasts in [address] [facility] will attempt to contact patient to return for supplemental views and ultrasound if indicated. Patient should continue monthly self-breast exams. A clinical breast exam by your physician is recommended on an annual basis. This exam should not preclude additional follow-up of suspicious palpable abnormalities. Note on Kaylie scores and lifetime risk: 1. A Kaylie score greater than 3% is considered moderate risk. If this is the case, consider specialist referral to assess eligibility for a risk reducing agent. 2. If overall lifetime risk for the development of breast cancer is 20% or higher, the patient may qualify for future screening with alternating mammogram and breast MRI. [facility], , 10/06/2024 11:29 AM. Electronically signed and approved by: Loyd Kay DO
== END | disposition home or self-care (01) ==
LOC: RADMAMWWP 14:45
PROVIDERS: ATTEND Internal Medicine
DX: Z12.31 Encounter for screening mammogram for malignant neoplasm of breast (principal); Z78.0 Asymptomatic menopausal state; Z80.3 Family history of malignant neoplasm of breast; Z90.722 Acquired absence of ovaries, bilateral; R92.333 Mammographic heterogeneous density, bilateral breasts
CPT/HCPCS: 77063; 77067

== ENCOUNTER → 2025-01-26 | Outpatient (CLI) | payer MEDICARE ==
[2025-01-26 15:16] LABS: ALT 17 U/L (8-44); AST 20 U/L (13-35); Albumin 4.2 g/dL (3.8-4.9); Alkaline Phosphatase 63 U/L (41-126); Blood Urea Nitrogen 15.8 mg/dL (9.0-27.0); Calcium 9.1 mg/dL (8.7-10.3); Chloride 106 mmol/L (96-109); Chol/HDL Ratio 2.83 Ratio; Globulin 2.1 g/dL (1.6-3.3); Glucose 96 mg/dL (70-110); LDL Cholesterol,Calculated 83.7 mg/dL (0.0-131.0); Sodium 141 mmol/L (135-145); Total Bilirubin 0.5 mg/dL (0.3-1.2); Total Protein 6.3 g/dL (6.2-8.2)
== END | disposition home or self-care (01) ==
LOC: LABWHC1 09:41
PROVIDERS: ATTEND Nurse Practitioner Adult Health
DX: I10 Essential (primary) hypertension (principal); E78.2 Mixed hyperlipidemia
CPT/HCPCS: 36415; 80053; 80061